=== PATIENT | female | born 1990 | race Hispanic/Latino ===

== ENCOUNTER 2017-08-28 21:27 | Emergency (ER) | payer SELFPAY ==
[2017-08-28 21:48] LABS: Bilirubin Negative (Negative); Blood, Urine Small (Negative); Glucose, Urine (Dipstick) Negative (Negative); Ketone, Urine Trace mg/dL (Negative); Nitrite Negative (Negative); Protein, Urine (Dipstick) Negative (Neg-Trace)
[2017-08-28 21:51] LABS: Bacteria/HPF 1+ HPF (None Seen); Hyaline Casts/LPF 0-3 HYALINE CAST LPF (0-3 Hyaline); RBC/HPF 0-3 HPF (0-3); Squamous Epithelial 0-3 HPF (0-3); WBC/HPF 0-3 HPF (0-3)
[2017-08-28] MEDS ORDERED: traMADol HCl 50 MG TAB ONE (22:11)
[2017-08-28] MEDS ORDERED: Ibuprofen 800 MG TAB ONE (22:12)
== END 2017-08-28 22:15 | disposition home or self-care (01) ==
LOC: SCSER 21:27
DX: N89.8 Other specified noninflammatory disorders of vagina (principal); J45.909 Unspecified asthma, uncomplicated
CPT/HCPCS: 81003; 81015; 81025; 87480; 87491; 87510; 87591; 87660; 99284

== ENCOUNTER 2017-09-06 07:21 | Outpatient (CLI) | payer SELFPAY | END 2017-09-06 07:22 | disposition home or self-care (01) | LOC: BICULT 07:21 | PROVIDERS: ATTEND Nurse Practitioner Women's Health | DX: M54.5 Low back pain (principal) | CPT/HCPCS: 76700 ==

== ENCOUNTER 2018-04-04 09:08 | Emergency (ER) | payer SELFPAY ==
[2018-04-04 09:46] LABS: #Eosinphils 0.1 thou/uL (0.0-0.7); #Lymphocytes 1.3 thou/uL (1.20-3.40); #Monocytes 0.3 thou/uL (0.11-0.59); #Neutrophils 2.3 thou/uL (1.40-6.50); %Basophils 0.4 % (0.0-1.0); %Eosinophils 1.9 % (0.0-10.0); %Lymphocytes 33.5 % (21.0-51.0); %Monocytes 6.7 % (0.0-10.0); %Neutrophils 57.4 % (42.0-75.0); Hemoglobin 14.6 g/dL (12.0-16.0); Mean Corpuscular HGB CONC 35.9 g/dL (32.0-36.0); Mean Corpuscular Hemoglobin 30.4 pg (27.0-31.0); Mean Corpuscular Volume 84.7 fL (78.0-98.0); Mean Platelet Volume 7.2 fL (7.4-10.4); Platelet Count 188 thou/uL (130-400)
[2018-04-04 10:13] LABS: ALT (SGPT) 25 U/L (8-55); AST (SGOT) 23 U/L (5-34); Albumin 4.6 g/dL (3.5-5.0); Alkaline Phosphatase 51 U/L (40-150); Anion Gap 12 mmol/L (10-20); BUN (Urea Nitrogen) 14 mg/dL (7.0-18.7); Bilirubin, Total 0.8 mg/dL (0.2-1.2); Calc. Creatinine Clearance 0 mL/min (70-130); Calcium 9.6 mg/dL (7.8-10.44); Carbon Dioxide 24 mmol/L (22-29); Chloride 107 mmol/L (98-107); Estimated GFR-MDRD Greater than 90; Globulin 2.7 g/dL (2.4-3.5); Glucose 70 mg/dL (70-105); Lipase 17 U/L (8-78); Potassium 3.6 mmol/L (3.5-5.1); Protein, Total 7.3 g/dL (6.0-8.3); Sodium 139 mmol/L (136-145)
[2018-04-04 10:25] LABS: Bilirubin Negative (Negative); Blood, Urine Trace (Negative); Glucose, Urine (Dipstick) Negative (Negative); Leukocyte Negative (Negative); Nitrite Negative (Negative); Protein, Urine (Dipstick) Negative (Neg-Trace); Specific Gravity, Urine 1.025 (1.005-1.030)
[2018-04-04 10:27] LABS: Clarity Clear (Clear)
[2018-04-04 10:30] LABS: Pregnancy Test - Urine (BHCG) Negative (Negative); Pregu Control Background? CLEAR/WHITE (CLR/WHITE); Pregu Control Bar Appear? YES (CONTROL BAR); Specific Gravity 1.025 (1.002-1.036)
[2018-04-04 10:38] LABS: Bacteria/HPF Rare-Few HPF (None Seen); Hyaline Casts/LPF NONE SEEN LPF (0-3 Hyaline); RBC/HPF 0-3 HPF (0-3); WBC/HPF 0-3 HPF (0-3)
[2018-04-04] MEDS ORDERED: Ondansetron ODT 4 MG TAB ONE (10:47)
== END 2018-04-04 12:45 | disposition home or self-care (01) ==
LOC: ERS 09:08
DX: R10.13 Epigastric pain (principal); J45.909 Unspecified asthma, uncomplicated
CPT/HCPCS: 36415; 80053; 81003; 81015; 81025; 82274; 83690; 85025; 96360; 96361; 96372; Q0162

== ENCOUNTER 2018-07-03 10:29 | Outpatient (CLI) | payer MEDICAID ==
--- NOTE | 2018-07-03 13:03 | ULT ---
PELVIC ULTRASOUND: HISTORY: Pelvic pain and bleeding. FINDINGS: Real-time imaging of the pelvis was obtained transabdominally as well as with an endovaginal probe. The uterus measures 3.3 x 4.1 x 7.2 cm in size. Endometrium is in the 7-8 mm range. There is a full ness in the lower uterine segment or cervix region. This may represent blood products in this region . The left ovary is not visualized. The right ovary is difficult to visualize but appears unremarka ble. DOPPLER EVALUATION WITH SPECTRAL ANALYSIS: Normal flow is shown to the right ovary. IMPRESSION: 1. Slightly thickened endometrium. Some prominence to the lower uterine segment, but no discrete fi broid. There is a somewhat complex area seen in the lower uterine segment and possibly this has raise d some type of blood products in this region. 2. The left ovary is not seen. The right ovary is poorly visualized but appears normal. POS: [facility]
== END 2018-07-03 10:30 | disposition home or self-care (01) ==
LOC: BICULT 10:29
PROVIDERS: ATTEND Nurse Practitioner Women's Health
DX: R10.2 Pelvic and perineal pain (principal); R93.89 Abnormal findings on diagnostic imaging of other specified body structures
CPT/HCPCS: 76856